=== PATIENT | female | born 2005 | race Caucasian/White ===

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

== ENCOUNTER 2024-03-09 13:11 | Inpatient (IN) | payer BC, OTHER ==
[2024-03-09] MEDS ORDERED: hydrALAZINE 20 MG/ML VIAL SLOW IVP PRN (16:05)
[2024-03-09] MEDS: Lactated Ringer's 1,000 ML IV SCH ×2 (16:15→17:32)
[2024-03-09 16:48] LABS: #Basophils 0.03 10x3/uL (0.0-0.2); #Eosinphils 0.07 10x3/uL (0.0-0.5); #Monocytes 0.35 10x3/uL (0.0-1.1); #Neutrophils 4.57 10x3/uL (1.5-8.4); %Basophils 0.4 % (0.0-2.0); %Lymphocytes 28.4 % (18.0-47.0); %Neutrophils 64.9 % (40.0-75.0); Hematocrit 36.4 % (34.9-44.5); Hemoglobin 12.6 g/dL (12.0-15.5); Mean Corpuscular HGB CONC 34.6 g/dL (32.0-36.0); Mean Corpuscular Hemoglobin 28.7 pg (27.0-33.0); Mean Corpuscular Volume 82.9 fL (81.6-98.3); Mean Platelet Volume 10.4 fL (7.4-10.4); Platelet Count 242 10x3/uL (150-450); RBC Distribution Width 17.6 % (11.5-14.5); Red Blood Cell (RBC) Count 4.39 10x6/uL (3.90-5.03)
[2024-03-09] MEDS ORDERED: Promethazine HCl 12.5 MG, Admixture Fee 1 EACH in Sodium Chloride 0.9% 50 ML IVPB SCH (17:00)
[2024-03-09 17:17] LABS: Phosphorus 3.8 mg/dL (2.3-4.7)
[2024-03-09 17:20] LABS: ALT (SGPT) 9 U/L (8-55); AST (SGOT) 13 U/L (5-30); Albumin 3.8 g/dL (3.5-5.0); Alkaline Phosphatase 50 U/L (40-100); Anion Gap 12 mmol/L (10-20); BUN (Urea Nitrogen) 5 mg/dL (8.4-21.0); Bilirubin, Total 0.5 mg/dL (0.2-1.2); Calc. Creatinine Clearance 105 mL/min (70-130); Calcium 9.5 mg/dL (7.8-10.44); Carbon Dioxide 27 mmol/L (22-29); Chloride 101 mmol/L (98-107); Estimated GFR 131; Globulin 2.7 g/dL (2.4-3.5); Glucose 78 mg/dL (70-105); Magnesium 1.8 mg/dL (1.7-2.2); Potassium 3.1 mmol/L (3.5-5.1); Protein, Total 6.5 g/dL (6.0-8.3); Sodium 137 mmol/L (136-145)
[2024-03-09] MEDS: Ondansetron PF 4 MG/2 ML Vial IVP SCH (17:49)
[2024-03-09] MEDS: diphenhydrAMINE 50 MG/ML VIAL IVP SCH (17:51)
[2024-03-09] MEDS: Pantoprazole 40 MG VIAL IVP SCH (18:42)
[2024-03-09] MEDS: MULTIVITAMINS IV SCH (20:25)
[2024-03-09] MEDS: SODIUM CHLORIDE IV SCH (20:25)
[2024-03-09] MEDS: ADMIXTURE FEE IV SCH (20:25)
[2024-03-09] MEDS: Thiamine HCl 200 MG, Admixture Fee 1 EACH in Sodium Chloride 0.9% 50 ML IVPB SCH (20:31)
[2024-03-09] MEDS: Acetaminophen 500 MG TAB PO PRN (20:42)
[2024-03-09] MEDS: Potassium Chloride 20 MEQ TAB PO SCH (20:42)
[2024-03-09] MEDS: Promethazine HCl 12.5 MG, Admixture Fee 1 EACH in Sodium Chloride 0.9% 50 ML IVPB SCH (21:42)
[2024-03-10 03:26] LABS: ALT (SGPT) 7 U/L (8-55); AST (SGOT) 11 U/L (5-30); Albumin 3.1 g/dL (3.5-5.0); Alkaline Phosphatase 40 U/L (40-100); Anion Gap 9 mmol/L (10-20); BUN (Urea Nitrogen) 5 mg/dL (8.4-21.0); Bilirubin, Total 0.2 mg/dL (0.2-1.2); Calc. Creatinine Clearance 101 mL/min (70-130); Calcium 8.4 mg/dL (7.8-10.44); Carbon Dioxide 26 mmol/L (22-29); Chloride 107 mmol/L (98-107); Estimated GFR 130; Globulin 2.2 g/dL (2.4-3.5); Glucose 76 mg/dL (70-105); Potassium 3.9 mmol/L (3.5-5.1); Protein, Total 5.3 g/dL (6.0-8.3); Sodium 138 mmol/L (136-145)
[2024-03-10 03:38] LABS: Hematocrit 31.4 % (34.9-44.5); Hemoglobin 10.5 g/dL (12.0-15.5); Mean Corpuscular HGB CONC 33.4 g/dL (32.0-36.0); Mean Corpuscular Hemoglobin 28.4 pg (27.0-33.0); Mean Corpuscular Volume 84.9 fL (81.6-98.3); Mean Platelet Volume 11.1 fL (7.4-10.4); Platelet Count 209 10x3/uL (150-450); White Blood Cell (WBC) Count 5.8 10x3/uL (3.5-10.5)
[2024-03-10] MEDS: METHadone HCl 10 MG TAB PO SCH ×2 (09:30→21:06)
[2024-03-10] MEDS: Thiamine HCl 200 MG, Admixture Fee 1 EACH in Sodium Chloride 0.9% 50 ML IVPB SCH (09:31)
[2024-03-10] MEDS: Pantoprazole 40 MG VIAL IVP SCH (09:31)
[2024-03-10] MEDS: Magnesium 2 GM/50 ML(in water) 2 GM in Premix 1 BAG IVPB SCH (09:58)
[2024-03-10] MEDS: Dextrose 5%-Lactated Ringers 1,000 ML IV SCH (09:58)
[2024-03-10 10:51] LABS: Bilirubin Neg (Negative); Blood, Urine Negative (Negative); Clarity Slightly Cloudy (Clear); Glucose, Urine (Dipstick) Normal (Negative); Ketone, Urine Negative (Negative); Leukocyte 25 (Negative); Nitrite Negative (Negative); Protein, Urine (Dipstick) Negative (Neg-Trace); Specific Gravity, Urine 1.015 (1.005-1.030); Urobilinogen Normal mg/dL (Less than 2)
[2024-03-10 10:59] LABS: Amphetamine Not Detected (NotDetected); Barbiturates Screen Not Detected (NotDetected); Benzodiazepine Screen Not Detected (NotDetected); Cocaine Metabolite Screen Not Detected (NotDetected); Methadone Detected (NotDetected); Methamphetamine Not Detected (NotDetected); Opiate Screen Not Detected (NotDetected); Oxycodone Screen Not Detected (NotDetected); Phencyclidine (PCP) Not Detected (NotDetected); THC/Cannabinoid Screen Detected (NotDetected); Tricyclic Screen Not Detected (NotDetected)
[2024-03-10 11:06] LABS: CAUTI Indications for Culture Pregnancy; RBC/HPF 0-3 HPF (0-3)
[2024-03-10 11:07] LABS: Bacteria/HPF 1+ HPF (None Seen)
[2024-03-10 11:08] LABS: Urine Culture Reflex Yes Yes
[2024-03-10] MEDS: busPIRone HCl 15 MG TAB PO SCH (20:46)
[2024-03-11 03:51] LABS: ALT (SGPT) Less than 7 U/L (8-55); AST (SGOT) 10 U/L (5-30); Albumin 2.7 g/dL (3.5-5.0); Alkaline Phosphatase 35 U/L (40-100); Anion Gap 8 mmol/L (10-20); BUN (Urea Nitrogen) Less than 4 mg/dL (8.4-21.0); Bilirubin, Total 0.2 mg/dL (0.2-1.2); Calc. Creatinine Clearance 110 mL/min (70-130); Calcium 8.2 mg/dL (7.8-10.44); Carbon Dioxide 23 mmol/L (22-29); Chloride 111 mmol/L (98-107); Estimated GFR 133; Globulin 1.9 g/dL (2.4-3.5); Glucose 88 mg/dL (70-105); Magnesium 1.8 mg/dL (1.7-2.2); Potassium 3.6 mmol/L (3.5-5.1); Protein, Total 4.6 g/dL (6.0-8.3); Sodium 138 mmol/L (136-145)
[2024-03-11 03:57] LABS: Phosphorus 3.6 mg/dL (2.3-4.7)
[2024-03-11] MEDS: Magnesium 2 GM/50 ML(in water) 2 GM in Premix 1 BAG IVPB SCH (08:24)
[2024-03-11] MEDS: Dextrose 5%-Lactated Ringers 1,000 ML IV SCH (09:54)
[2024-03-11] MEDS: methylPREDNISolone Sod Succ/PF 125 MG/2 ML VIAL IVP SCH (10:00)
[2024-03-11] MEDS: Metoclopramide HCl 10 MG (2 mL) VIAL IVP SCH (21:42)
[2024-03-12 05:25] LABS: ALT (SGPT) 9 U/L (8-55); AST (SGOT) 14 U/L (5-30); Albumin 3.2 g/dL (3.5-5.0); Alkaline Phosphatase 42 U/L (40-100); Anion Gap 10 mmol/L (10-20); BUN (Urea Nitrogen) Less than 4 mg/dL (8.4-21.0); Bilirubin, Total 0.2 mg/dL (0.2-1.2); Calc. Creatinine Clearance 125 mL/min (70-130); Calcium 9.1 mg/dL (7.8-10.44); Carbon Dioxide 22 mmol/L (22-29); Chloride 110 mmol/L (98-107); Estimated GFR 134; Globulin 2.6 g/dL (2.4-3.5); Glucose 113 mg/dL (70-105); Magnesium 1.8 mg/dL (1.7-2.2); Phosphorus 2.7 mg/dL (2.3-4.7); Potassium 4.1 mmol/L (3.5-5.1); Protein, Total 5.8 g/dL (6.0-8.3); Sodium 138 mmol/L (136-145)
[2024-03-12] MEDS: Bisacodyl 10 MG SUPP PR SCH (10:45)
[2024-03-12] MEDS: OLANZapine 10 MG VIAL IM SCH (10:48)
[2024-03-12 15:20] LABS: Influenza A by NAA Not Detected (NotDetected); Influenza B by NAA Not Detected (NotDetected); RSV by NAA Not Detected (NotDetected); SARS-CoV-2 NAA Rapid Test Not Detected (NotDetected)
[2024-03-13 03:53] LABS: Phosphorus 2.9 mg/dL (2.3-4.7)
[2024-03-13 04:03] LABS: ALT (SGPT) 8 U/L (8-55); AST (SGOT) 10 U/L (5-30); Albumin 2.7 g/dL (3.5-5.0); Alkaline Phosphatase 35 U/L (40-100); Anion Gap 11 mmol/L (10-20); BUN (Urea Nitrogen) Less than 4 mg/dL (8.4-21.0); Bilirubin, Total Less than 0.2 mg/dL (0.2-1.2); Calc. Creatinine Clearance 135 mL/min (70-130); Calcium 8.3 mg/dL (7.8-10.44); Carbon Dioxide 20 mmol/L (22-29); Chloride 113 mmol/L (98-107); Estimated GFR 136; Globulin 2.1 g/dL (2.4-3.5); Glucose 99 mg/dL (70-105); Magnesium 1.6 mg/dL (1.7-2.2); Potassium 3.4 mmol/L (3.5-5.1); Protein, Total 4.8 g/dL (6.0-8.3); Sodium 141 mmol/L (136-145)
[2024-03-13] MEDS: Magnesium 2 GM/50 ML(in water) 2 GM in Premix 1 BAG IVPB SCH (07:36)
[2024-03-13] MEDS: Potassium Chloride 20 MEQ TAB PO SCH (07:40)
[2024-03-13] MEDS: OLANZapine 5 MG TAB PO SCH (09:06)
[2024-03-13 23:04] LABS: Bilirubin Neg (Negative); Blood, Urine Negative (Negative); Clarity Clear (Clear); Glucose, Urine (Dipstick) 50 mg/dL (Negative); Ketone, Urine Negative (Negative); Leukocyte 25 (Negative); Nitrite Negative (Negative); Protein, Urine (Dipstick) 15 mg/dl (Neg-Trace); Specific Gravity, Urine 1.005 (1.005-1.030); Urobilinogen Normal mg/dL (Less than 2)
[2024-03-13 23:20] LABS: Bacteria/HPF None Seen HPF (None Seen); CAUTI Indications for Culture Pregnancy; RBC/HPF None Seen HPF (0-3); Squamous Epithelial 0-3 HPF (0-3); WBC/HPF 0-3 HPF (0-3)
[2024-03-13 23:22] LABS: Urine Culture Reflex Yes Yes
[2024-03-14 04:28] LABS: Phosphorus 2.9 mg/dL (2.3-4.7)
[2024-03-14 04:31] LABS: ALT (SGPT) 8 U/L (8-55); AST (SGOT) 13 U/L (5-30); Albumin 2.7 g/dL (3.5-5.0); Alkaline Phosphatase 35 U/L (40-100); Anion Gap 9 mmol/L (10-20); BUN (Urea Nitrogen) Less than 4 mg/dL (8.4-21.0); Bilirubin, Total Less than 0.2 mg/dL (0.2-1.2); Calc. Creatinine Clearance 150 mL/min (70-130); Calcium 8.6 mg/dL (7.8-10.44); Carbon Dioxide 24 mmol/L (22-29); Chloride 111 mmol/L (98-107); Estimated GFR 139; Globulin 2.2 g/dL (2.4-3.5); Glucose 99 mg/dL (70-105); Magnesium 1.9 mg/dL (1.7-2.2); Potassium 3.9 mmol/L (3.5-5.1); Protein, Total 4.9 g/dL (6.0-8.3); Sodium 140 mmol/L (136-145)
[2024-03-14] MEDS: Multivit, Adult Inj 10 ML VIAL IV SCH (08:00)
[2024-03-14] MEDS: Promethazine HCl 25 MG/ML VIAL IVPB SCH (08:00)
[2024-03-14] MEDS: Pantoprazole 40 MG VIAL IVP SCH (08:00)
[2024-03-14] MEDS: predniSONE 20 MG TAB PO SCH (09:08)
[2024-03-14] MEDS ORDERED: Milk Of Magnesia 30 ML UDCUP PO PRN (09:16)
[2024-03-14] MEDS ORDERED: Bisacodyl 10 MG SUPP PR PRN (09:16)
[2024-03-14] MEDS: methylPREDNISolone Sod Succ/PF 125 MG/2 ML VIAL IVP SCH (09:28)
[2024-03-14] MEDS: Pantoprazole DR 40 MG TAB PO SCH (10:25)
[2024-03-14] MEDS: D5 LR w/20 mEq KCL 1,000 ML IV SCH (10:51)
[2024-03-14] MEDS: Polyethylene Glycol 3350 17 GM Packet PO SCH (10:52)
[2024-03-14] MEDS: Diazepam 5 MG TAB PO SCH (10:52)
[2024-03-14] MEDS: Sucralfate 1 GM/10 ML UDCUP PO SCH ×2 (10:52→20:10)
[2024-03-14] MEDS: diphenhydrAMINE 25 MG CAP PO SCH (10:53)
[2024-03-14] MEDS: traZODone HCl 50 MG TAB PO PRN (22:57)
[2024-03-15 04:32] LABS: Phosphorus 3.1 mg/dL (2.3-4.7)
[2024-03-15 04:33] LABS: ALT (SGPT) 11 U/L (8-55); AST (SGOT) 14 U/L (5-30); Albumin 2.8 g/dL (3.5-5.0); Alkaline Phosphatase 41 U/L (40-100); Anion Gap 11 mmol/L (10-20); BUN (Urea Nitrogen) 6 mg/dL (8.4-21.0); Bilirubin, Total Less than 0.2 mg/dL (0.2-1.2); Calc. Creatinine Clearance 135 mL/min (70-130); Calcium 8.7 mg/dL (7.8-10.44); Carbon Dioxide 25 mmol/L (22-29); Chloride 109 mmol/L (98-107); Estimated GFR 136; Globulin 2.4 g/dL (2.4-3.5); Glucose 83 mg/dL (70-105); Potassium 3.6 mmol/L (3.5-5.1); Protein, Total 5.2 g/dL (6.0-8.3); Sodium 141 mmol/L (136-145)
[2024-03-15] MEDS: Thiamine 100 MG TAB PO SCH (09:01)
[2024-03-15] MEDS: Folic Acid 1 MG TAB PO SCH (09:04)
[2024-03-15] MEDS: Docusate 100 MG CAP PO SCH (09:05)
[2024-03-15] MEDS: Polyethylene Glycol 3350 17 GM Packet PO SCH (09:05)
[2024-03-15] MEDS ORDERED: methylPREDNISolone Sod Succ/PF 80 MG in Sodium Chloride 0.9% 250 ML 250 ML IVPB SCH (09:45)
[2024-03-15] MEDS: methylPREDNISolone Sod Succ 40 MG VIAL IVP SCH (12:05)
[2024-03-15] MEDS: diphenhydrAMINE 25 MG CAP PO SCH (12:05)
[2024-03-15] MEDS: Ondansetron ODT 8 MG TAB SL SCH (12:07)
[2024-03-15] MEDS ORDERED: Mineral Oil ENEMA PR PRN (12:29)
[2024-03-15] MEDS: D5 LR w/20 mEq KCL 1,000 ML IV SCH (14:14)
[2024-03-15] MEDS: Milk Of Magnesia 30 ML UDCUP PO SCH (14:14)
[2024-03-15] MEDS: Pantoprazole DR 40 MG TAB PO SCH (17:25)
[2024-03-15] MEDS: Senokot S 8.6-50 MG TAB PO SCH (19:42)
[2024-03-16 04:13] LABS: Anion Gap 10 mmol/L (10-20); BUN (Urea Nitrogen) 5 mg/dL (8.4-21.0); Calc. Creatinine Clearance 133 mL/min (70-130); Carbon Dioxide 25 mmol/L (22-29); Chloride 107 mmol/L (98-107); Estimated GFR 135; Glucose 98 mg/dL (70-105); Magnesium 1.9 mg/dL (1.7-2.2); Potassium 3.9 mmol/L (3.5-5.1); Sodium 138 mmol/L (136-145)
[2024-03-16] MEDS: Docusate 100 MG CAP PO SCH (09:20)
[2024-03-16] MEDS: methylPREDNISolone Sod Succ/PF 125 MG/2 ML VIAL IVP SCH (09:22)
[2024-03-16] MEDS: Promethazine 25 MG TAB PO SCH (13:40)
[2024-03-16] MEDS: GoLYTELY 4,000 ml Bottle PO SCH (13:42)
[2024-03-17 04:01] LABS: Anion Gap 14 mmol/L (10-20); BUN (Urea Nitrogen) 6 mg/dL (8.4-21.0); Calc. Creatinine Clearance 138 mL/min (70-130); Calcium 8.8 mg/dL (7.8-10.44); Carbon Dioxide 23 mmol/L (22-29); Chloride 106 mmol/L (98-107); Estimated GFR 136; Glucose 83 mg/dL (70-105); Magnesium 1.8 mg/dL (1.7-2.2); Potassium 3.3 mmol/L (3.5-5.1); Sodium 140 mmol/L (136-145)
[2024-03-17 07:31] LABS: Phosphorus 3.9 mg/dL (2.3-4.7)
[2024-03-17] MEDS: Potassium Chloride 20 MEQ TAB PO SCH (08:52)
[2024-03-17] MEDS: Magnesium Oxide 400 MG TAB PO SCH (08:55)
[2024-03-17] MEDS: Ondansetron PF 4 MG/2 ML Vial IVP PRN (15:08)
[2024-03-17] MEDS: Cyclobenzaprine 10 MG TAB PO SCH (20:46)
[2024-03-17] MEDS: Naloxegol 12.5 MG TAB PO SCH (20:47)
[2024-03-17] MEDS: Sucralfate 1 GM/10 ML UDCUP PO SCH (23:15)
[2024-03-17] MEDS: Simethicone Chewable 80 MG TAB PO PRN (23:15)
[2024-03-18 03:54] LABS: Anion Gap 13 mmol/L (10-20); BUN (Urea Nitrogen) 6 mg/dL (8.4-21.0); Calc. Creatinine Clearance 128 mL/min (70-130); Calcium 9.3 mg/dL (7.8-10.44); Carbon Dioxide 26 mmol/L (22-29); Chloride 105 mmol/L (98-107); Estimated GFR 134; Glucose 90 mg/dL (70-105); Magnesium 1.9 mg/dL (1.7-2.2); Potassium 3.9 mmol/L (3.5-5.1); Sodium 140 mmol/L (136-145)
[2024-03-18] MEDS: diphenhydrAMINE 25 MG CAP PO SCH (04:35)
[2024-03-18] MEDS: predniSONE 20 MG TAB PO SCH (09:46)
[2024-03-18] MEDS: Sucralfate 1 GM/10 ML UDCUP PO SCH (09:46)
[2024-03-18] MEDS: Naloxegol 12.5 MG TAB PO SCH (09:47)
[2024-03-18] MEDS: Ondansetron PF 4 MG/2 ML Vial IVP SCH (17:06)
[2024-03-18] MEDS: Famotidine 20 MG TAB PO SCH (21:52)
[2024-03-19 04:19] LABS: Anion Gap 12 mmol/L (10-20); BUN (Urea Nitrogen) 7 mg/dL (8.4-21.0); Calc. Creatinine Clearance 127 mL/min (70-130); Calcium 9.6 mg/dL (7.8-10.44); Carbon Dioxide 26 mmol/L (22-29); Chloride 104 mmol/L (98-107); Estimated GFR 132; Glucose 114 mg/dL (70-105); Potassium 4.5 mmol/L (3.5-5.1); Sodium 137 mmol/L (136-145)
[2024-03-19] MEDS: Dextrose 5%-Lactated Ringers 1,000 ML IV SCH (07:41)
[2024-03-19] MEDS: Famotidine 20 MG TAB PO SCH (09:54)
[2024-03-19] MEDS: Ondansetron ODT 4 MG TAB PO SCH (12:48)
[2024-03-19] MEDS ORDERED: Lidocaine 2% 6 ML (Jelly) SYR FS SCH (13:30)
[2024-03-20 06:10] LABS: Chloride 104 mmol/L (98-107); Potassium 3.9 mmol/L (3.5-5.1); Sodium 138 mmol/L (136-145)
[2024-03-20 06:11] LABS: Anion Gap 14 mmol/L (10-20); BUN (Urea Nitrogen) 8 mg/dL (8.4-21.0); Calc. Creatinine Clearance 149 mL/min (70-130); Calcium 9.2 mg/dL (7.6-10.4); Carbon Dioxide 24 mmol/L (22-29); Estimated GFR 137; Glucose 109 mg/dL (70-105); Magnesium 1.8 mg/dL (1.7-2.2); Phosphorus 3.7 mg/dL (2.3-4.7)
[2024-03-20] MEDS: diphenhydrAMINE 25 MG CAP ONE (11:06)
[2024-03-20] MEDS: diphenhydrAMINE 25 MG CAP PO SCH ×3 (11:06→11:15)
[2024-03-21 05:56] LABS: Anion Gap 15 mmol/L (10-20); BUN (Urea Nitrogen) 9 mg/dL (8.4-21.0); Calc. Creatinine Clearance 138 mL/min (70-130); Calcium 9.3 mg/dL (7.8-10.44); Carbon Dioxide 23 mmol/L (22-29); Chloride 102 mmol/L (98-107); Estimated GFR 135; Glucose 103 mg/dL (70-105); Magnesium 1.9 mg/dL (1.7-2.2); Phosphorus 4.5 mg/dL (2.3-4.7); Potassium 3.9 mmol/L (3.5-5.1); Sodium 136 mmol/L (136-145)
[2024-03-21] MEDS: Polyethylene Glycol 3350 17 GM Packet PO SCH (08:51)
[2024-03-21] MEDS: pyridOXINE 50 MG (B6) TAB PO SCH (08:51)
[2024-03-21] MEDS: Lactated Ringer's 1,000 ML IV SCH (17:07)
[2024-03-22 04:36] LABS: Anion Gap 15 mmol/L (10-20); BUN (Urea Nitrogen) 9 mg/dL (8.4-21.0); Calc. Creatinine Clearance 129 mL/min (70-130); Calcium 9.2 mg/dL (7.8-10.44); Carbon Dioxide 23 mmol/L (22-29); Chloride 102 mmol/L (98-107); Estimated GFR 133; Glucose 96 mg/dL (70-105); Magnesium 1.9 mg/dL (1.7-2.2); Phosphorus 3.9 mg/dL (2.3-4.7); Potassium 4.1 mmol/L (3.5-5.1); Sodium 136 mmol/L (136-145)
[2024-03-22 09:46] VITALS: BMI 17.9
[2024-03-23 03:30] LABS: Anion Gap 17 mmol/L (10-20); BUN (Urea Nitrogen) 9 mg/dL (8.4-21.0); Calc. Creatinine Clearance 125 mL/min (70-130); Calcium 9.1 mg/dL (7.8-10.44); Carbon Dioxide 21 mmol/L (22-29); Chloride 102 mmol/L (98-107); Estimated GFR 133; Glucose 129 mg/dL (70-105); Magnesium 1.9 mg/dL (1.7-2.2); Phosphorus 3.9 mg/dL (2.3-4.7); Potassium 3.7 mmol/L (3.5-5.1); Sodium 136 mmol/L (136-145)
[2024-03-23] MEDS ORDERED: Potassium Chloride 20 MEQ TAB PO SCH (08:45)
[2024-03-23] MEDS: Potassium Bicarbonate/Cit Ac 20 MEQ TAB PO SCH (09:08)
[2024-03-23 09:37] VITALS: BMI 17.9
[2024-03-24 04:57] LABS: Anion Gap 13 mmol/L (10-20); BUN (Urea Nitrogen) 9 mg/dL (8.4-21.0); Calc. Creatinine Clearance 132 mL/min (70-130); Calcium 9.2 mg/dL (7.8-10.44); Carbon Dioxide 25 mmol/L (22-29); Chloride 103 mmol/L (98-107); Estimated GFR 134; Glucose 96 mg/dL (70-105); Phosphorus 3.6 mg/dL (2.3-4.7); Sodium 137 mmol/L (136-145)
[2024-03-24 11:10] VITALS: BP 116/57; TEMP 97.9
== END 2024-03-24 14:25 | disposition home or self-care (01) | DRG 832 ==
LOC: INTOOBSV 16:14 → CSHPP 16:14 → OBSVTOIN 03-10 10:11
PROVIDERS: ADMIT Family Medicine; ATTEND Family Medicine
DX: O21.1 Hyperemesis gravidarum with metabolic disturbance (principal); F50.2 Bulimia nervosa; O99.322 Drug use complicating pregnancy, second trimester; F60.3 Borderline personality disorder; F11.90 Opioid use, unspecified, uncomplicated; F31.9 Bipolar disorder, unspecified; O99.342 Other mental disorders complicating pregnancy, second trimester; Z3A.17 17 weeks gestation of pregnancy; F45.22 Body dysmorphic disorder; Z79.899 Other long term (current) drug therapy; Z88.8 Allergy status to other drugs, medicaments and biological substances; O25.12 Malnutrition in pregnancy, second trimester; E83.42 Hypomagnesemia
CPT/HCPCS: 0241U; 36415; 74018; 80048; 80053; 80306; 81001; 83690; 83735; 84100; 85025; 85027; 87086; 93005; 93010; 96365; 96366; 96367; 96375; 96376; C9113; G0378; J1200; J2405; J2550; J2920; J2930; J3411; J3475; J3480; J7050; J7120; J7512; Q0162; Q0169

== ENCOUNTER 2024-06-30 16:42 | Inpatient (IN) | payer BC ==
[2024-06-30 17:12] VITALS: BMI 21.9
[2024-06-30] MEDS ORDERED: hydrALAZINE 20 MG/ML VIAL SLOW IVP PRN (19:01)
[2024-06-30] MEDS: Polyethylene Glycol 3350 17 GM Packet PO SCH (21:02)
[2024-06-30] MEDS: Ondansetron PF 4 MG/2 ML Vial IVP PRN (21:02)
[2024-06-30] MEDS: Docusate 100 MG CAP PO SCH (21:02)
[2024-06-30] MEDS: Folic Acid 1 MG TAB PO SCH (21:02)
[2024-06-30] MEDS: Lactated Ringer's 1,000 ML IV SCH (21:02)
[2024-06-30] MEDS: Multivit, Therapeutic 1 TAB PO SCH (21:02)
[2024-06-30] MEDS: Thiamine HCl 200 MG/2 ML VIAL SLOW IVP SCH (21:02)
[2024-06-30 21:39] LABS: #Basophils 0.03 10x3/uL (0.0-0.2); #Eosinophils 0.07 10x3/uL (0.0-0.5); #Monocytes 0.67 10x3/uL (0.0-1.1); #Neutrophils 4.96 10x3/uL (1.5-8.4); %Basophils 0.4 % (0.0-2.0); %Eosinophils 0.8 % (0.0-6.0); %Lymphocytes 31.5 % (18.0-47.0); %Neutrophils 59.1 % (40.0-75.0); Hematocrit 36.4 % (34.9-44.5); Hemoglobin 12.1 g/dL (12.0-15.5); Mean Corpuscular HGB CONC 33.2 g/dL (32.0-36.0); Mean Corpuscular Hemoglobin 28.8 pg (27.0-33.0); Mean Corpuscular Volume 86.7 fL (81.6-98.3); Mean Platelet Volume 10.6 fL (7.4-10.4); Platelet Count 226 10x3/uL (150-450); RBC Distribution Width 13.4 % (11.5-14.5); White Blood Cell (WBC) Count 8.4 10x3/uL (3.5-10.5)
[2024-06-30 21:49] LABS: ALT (SGPT) 18 U/L (8-55); AST (SGOT) 22 U/L (5-30); Albumin 3.4 g/dL (3.5-5.0); Alkaline Phosphatase 93 U/L (40-100); Anion Gap 14 mmol/L (10-20); BUN (Urea Nitrogen) 9 mg/dL (8.4-21.0); Bilirubin, Total 0.6 mg/dL (0.2-1.2); Calc. Creatinine Clearance 149 mL/min (70-130); Calcium 9.2 mg/dL (7.8-10.44); Carbon Dioxide 23 mmol/L (22-29); Chloride 103 mmol/L (98-107); Estimated GFR 132; Globulin 3.4 g/dL (2.4-3.5); Glucose 76 mg/dL (70-105); Phosphorus 3.1 mg/dL (2.3-4.7); Potassium 3.4 mmol/L (3.5-5.1); Protein, Total 6.8 g/dL (6.0-8.3); Sodium 137 mmol/L (136-145)
[2024-06-30 21:52] LABS: Amphetamine Not Detected (NotDetected); Barbiturates Screen Not Detected (NotDetected); Benzodiazepine Screen Not Detected (NotDetected); Cocaine Metabolite Screen Not Detected (NotDetected); Methadone Detected (NotDetected); Methamphetamine Not Detected (NotDetected); Opiate Screen Not Detected (NotDetected); Oxycodone Screen Not Detected (NotDetected); Phencyclidine (PCP) Not Detected (NotDetected); THC/Cannabinoid Screen Detected (NotDetected); Tricyclic Screen Not Detected (NotDetected)
[2024-06-30 21:54] LABS: Troponin I Less than 0.010 ng/mL (< 0.028)
[2024-06-30] MEDS: Promethazine 25 MG TAB PO PRN (22:38)
[2024-06-30 23:08] LABS: Syphilis Antibody Nonreactive (Nonreactive); Syphilis Antibody Index 0.04 S/CO (<1.00 Non-Reactive)
[2024-06-30 23:09] LABS: HIV (1/2) Antibody/Antigen Non-Reactive (NonReactive); HIV 1/2 INDEX 0.08 S/CO (<1.00)
[2024-07-01 04:17] LABS: #Basophils 0.03 10x3/uL (0.0-0.2); #Monocytes 0.79 10x3/uL (0.0-1.1); #Neutrophils 3.14 10x3/uL (1.5-8.4); %Basophils 0.4 % (0.0-2.0); %Eosinophils 1.5 % (0.0-6.0); %Lymphocytes 40.2 % (18.0-47.0); %Monocytes 11.5 % (0.0-10.0); Hematocrit 30.2 % (34.9-44.5); Hemoglobin 9.7 g/dL (12.0-15.5); Mean Corpuscular HGB CONC 32.1 g/dL (32.0-36.0); Mean Corpuscular Hemoglobin 28.4 pg (27.0-33.0); Mean Corpuscular Volume 88.6 fL (81.6-98.3); Mean Platelet Volume 10.4 fL (7.4-10.4); Platelet Count 180 10x3/uL (150-450); RBC Distribution Width 13.2 % (11.5-14.5); Red Blood Cell (RBC) Count 3.41 10x6/uL (3.90-5.03); White Blood Cell (WBC) Count 6.8 10x3/uL (3.5-10.5)
[2024-07-01 04:25] LABS: ALT (SGPT) 13 U/L (8-55); AST (SGOT) 16 U/L (5-30); Albumin 2.6 g/dL (3.5-5.0); Alkaline Phosphatase 71 U/L (40-100); Anion Gap 11 mmol/L (10-20); BUN (Urea Nitrogen) 6 mg/dL (8.4-21.0); Bilirubin, Total 0.5 mg/dL (0.2-1.2); Calc. Creatinine Clearance 149 mL/min (70-130); Calcium 8.6 mg/dL (7.8-10.44); Carbon Dioxide 24 mmol/L (22-29); Chloride 104 mmol/L (98-107); Estimated GFR 132; Globulin 2.8 g/dL (2.4-3.5); Glucose 82 mg/dL (70-105); Magnesium 1.7 mg/dL (1.7-2.2); Phosphorus 3.1 mg/dL (2.3-4.7); Potassium 3.3 mmol/L (3.5-5.1); Protein, Total 5.4 g/dL (6.0-8.3); Sodium 136 mmol/L (136-145)
[2024-07-01] MEDS: Folic Acid 1 MG TAB PO SCH (08:18)
[2024-07-01] MEDS: Multivit, Therapeutic 1 TAB PO SCH (08:18)
[2024-07-01] MEDS ORDERED: Docusate Sodium 100 MG/10 ML UDCUP PO SCH (09:00)
[2024-07-01] MEDS ORDERED: Sucralfate 1 GM/10 ML UDCUP PO PRN (09:06)
[2024-07-01] MEDS: Potassium Chloride 20 MEQ in Premix 1 BAG IVPB SCH (09:08)
[2024-07-01] MEDS: Senokot S 8.6-50 MG TAB PO SCH (09:59)
[2024-07-01 14:44] LABS: Bilirubin Neg (Negative); Blood, Urine Negative (Negative); Glucose, Urine (Dipstick) Normal (Negative); Ketone, Urine 150 mg/dL (Negative); Leukocyte 25 (Negative); Nitrite Negative (Negative); Protein, Urine (Dipstick) 30 mg/dl (Neg-Trace)
[2024-07-01 15:38] LABS: Clarity Turbid (Clear)
[2024-07-01 16:02] LABS: CAUTI Indications for Culture Pregnancy; RBC/HPF 0-3 HPF (0-3); Squamous Epithelial 0-3 HPF (0-3); Transitional Epithelial 0-3 HPF (None Seen); WBC/HPF 0-3 HPF (0-3)
[2024-07-01 16:03] LABS: Bacteria/HPF 2+ HPF (None Seen); Calcium Oxalate Crystals 1+ HPF (None Seen)
[2024-07-01 16:05] LABS: Urine Culture Reflex No No; Urine Culture Reflex Yes Yes
[2024-07-01] MEDS: METHadone HCl 10 MG TAB PO SCH ×2 (17:19→20:44)
[2024-07-01] MEDS: Pantoprazole 40 MG VIAL IVP SCH (20:44)
[2024-07-01] MEDS: Lactated Ringer's 1,000 ML IV SCH (22:00)
[2024-07-02 04:54] LABS: #Basophils 0.03 10x3/uL (0.0-0.2); #Eosinophils 0.11 10x3/uL (0.0-0.5); #Neutrophils 3.28 10x3/uL (1.5-8.4); %Basophils 0.5 % (0.0-2.0); %Eosinophils 1.8 % (0.0-6.0); %Lymphocytes 31.7 % (18.0-47.0); %Monocytes 11.6 % (0.0-10.0); %Neutrophils 54.1 % (40.0-75.0); Hematocrit 32.3 % (34.9-44.5); Hemoglobin 10.1 g/dL (12.0-15.5); Mean Corpuscular HGB CONC 31.3 g/dL (32.0-36.0); Mean Corpuscular Hemoglobin 28.1 pg (27.0-33.0); Mean Corpuscular Volume 89.7 fL (81.6-98.3); Mean Platelet Volume 10.6 fL (7.4-10.4); Platelet Count 182 10x3/uL (150-450); RBC Distribution Width 13.2 % (11.5-14.5); White Blood Cell (WBC) Count 6.1 10x3/uL (3.5-10.5)
[2024-07-02 04:55] LABS: Anion Gap 10 mmol/L (10-20); BUN (Urea Nitrogen) 4 mg/dL (8.4-21.0); Calc. Creatinine Clearance 162 mL/min (70-130); Calcium 8.2 mg/dL (7.8-10.44); Carbon Dioxide 23 mmol/L (22-29); Chloride 106 mmol/L (98-107); Estimated GFR 135; Glucose 76 mg/dL (70-105); Magnesium 1.7 mg/dL (1.7-2.2); Potassium 3.3 mmol/L (3.5-5.1); Sodium 136 mmol/L (136-145)
[2024-07-02] MEDS: OLANZapine 5 MG TAB PO SCH (08:36)
[2024-07-02] MEDS: Ferrous Gluconate 324 MG TAB PO SCH (08:37)
[2024-07-02] MEDS: METHadone HCl 10 MG TAB PO SCH (08:51)
[2024-07-02] MEDS ORDERED: METHadone HCl 10 MG TAB PO SCH (09:00)
[2024-07-02] MEDS: Mineral Oil ENEMA PR SCH (10:11)
[2024-07-02] MEDS: Sertraline 100 MG TAB PO SCH (10:11)
[2024-07-02 10:38] LABS: Chlam.trachomatis by PCR,Urine Not Detected (NotDetected); GC N.gonorrhoeae PCR,UrineVOID Not Detected (NotDetected)
[2024-07-02] MEDS: Magnesium Oxide 400 MG TAB PO SCH ×2 (11:42→21:50)
[2024-07-02] MEDS: Acetaminophen 500 MG TAB PO PRN (15:06)
[2024-07-02] MEDS: Benzocaine/Menthol 1 LOZ LOZ PO PRN (15:07)
[2024-07-02] MEDS ORDERED: Cyclobenzaprine 10 MG TAB PO PRN (21:08)
[2024-07-03 04:45] LABS: Anion Gap 12 mmol/L (10-20); BUN (Urea Nitrogen) Less than 4 mg/dL (8.4-21.0); Calc. Creatinine Clearance 154 mL/min (70-130); Calcium 8.2 mg/dL (7.8-10.44); Carbon Dioxide 22 mmol/L (22-29); Chloride 108 mmol/L (98-107); Estimated GFR 133; Glucose 77 mg/dL (70-105); Magnesium 1.7 mg/dL (1.7-2.2); Phosphorus 3.1 mg/dL (2.3-4.7); Potassium 3.7 mmol/L (3.5-5.1); Sodium 138 mmol/L (136-145)
[2024-07-03] MEDS: Milk Of Magnesia 30 ML UDCUP PO SCH (08:06)
[2024-07-03] MEDS: Sertraline 100 MG TAB PO SCH (09:08)
[2024-07-03] MEDS: Glycerin Adult Supp. (24 ct jar) PR SCH (12:19)
[2024-07-03] MEDS: GoLYTELY 4,000 ml Bottle PO SCH (13:42)
[2024-07-03] MEDS: Thiamine 100 MG TAB PO SCH (21:42)
[2024-07-04 04:25] LABS: Anion Gap 12 mmol/L (10-20); BUN (Urea Nitrogen) 4 mg/dL (8.4-21.0); Calc. Creatinine Clearance 165 mL/min (70-130); Calcium 8.4 mg/dL (7.8-10.44); Carbon Dioxide 24 mmol/L (22-29); Chloride 106 mmol/L (98-107); Estimated GFR 133; Glucose 70 mg/dL (70-105); Magnesium 1.9 mg/dL (1.7-2.2); Phosphorus 3.9 mg/dL (2.3-4.7); Potassium 3.5 mmol/L (3.5-5.1); Sodium 138 mmol/L (136-145)
[2024-07-04] MEDS: Diazepam 5 MG TAB PO PRN (19:38)
[2024-07-05 04:05] LABS: Anion Gap 15 mmol/L (10-20); BUN (Urea Nitrogen) Less than 4 mg/dL (8.4-21.0); Calc. Creatinine Clearance 171 mL/min (70-130); Calcium 8.6 mg/dL (7.8-10.44); Carbon Dioxide 18 mmol/L (22-29); Chloride 107 mmol/L (98-107); Estimated GFR 135; Glucose 86 mg/dL (70-105); Magnesium 1.9 mg/dL (1.7-2.2); Phosphorus 3.8 mg/dL (2.3-4.7); Potassium 3.9 mmol/L (3.5-5.1); Sodium 136 mmol/L (136-145)
[2024-07-05] MEDS: Dextrose 5%-Lactated Ringers 1,000 ML IV SCH (12:42)
[2024-07-05] MEDS: Lidocaine 2% 6 ML (Jelly) SYR TOP SCH (16:23)
[2024-07-05] MEDS: Oxymetazoline HCl 0.05% ( 15 ML ) NASAL SCH (16:23)
[2024-07-05] MEDS: traZODone HCl 50 MG TAB PO PRN (21:01)
[2024-07-06 05:15] LABS: ALT (SGPT) 14 U/L (8-55); AST (SGOT) 16 U/L (5-30); Albumin 2.5 g/dL (3.5-5.0); Alkaline Phosphatase 84 U/L (40-100); Anion Gap 12 mmol/L (10-20); BUN (Urea Nitrogen) 5 mg/dL (8.4-21.0); Bilirubin, Total 0.3 mg/dL (0.2-1.2); Calc. Creatinine Clearance 155 mL/min (70-130); Calcium 8.8 mg/dL (7.8-10.44); Carbon Dioxide 24 mmol/L (22-29); Chloride 107 mmol/L (98-107); Estimated GFR 131; Globulin 2.9 g/dL (2.4-3.5); Glucose 98 mg/dL (70-105); Magnesium 1.8 mg/dL (1.7-2.2); Phosphorus 3.9 mg/dL (2.3-4.7); Potassium 3.9 mmol/L (3.5-5.1); Protein, Total 5.4 g/dL (6.0-8.3); Sodium 139 mmol/L (136-145)
[2024-07-06] MEDS: Ferrous Gluconate 324 MG TAB PO SCH (08:23)
[2024-07-06] MEDS: METHadone HCl 10 MG TAB PO SCH (10:07)
[2024-07-06] MEDS: Pseudoephedrine HCl 30 MG TAB PO PRN (13:42)
[2024-07-06 15:24] LABS: Influenza A by NAA Not Detected (NotDetected); Influenza B by NAA Not Detected (NotDetected); SARS-CoV-2 NAA Rapid Test Not Detected (NotDetected)
[2024-07-06] MEDS: Fluticasone Propionate Nasal Spray 16 gm Bottle NASAL SCH (17:45)
[2024-07-06] MEDS: guaiFENesin ER 600 MG TAB PO SCH (17:45)
[2024-07-07 04:04] LABS: ALT (SGPT) 13 U/L (8-55); AST (SGOT) 14 U/L (5-30); Albumin 2.4 g/dL (3.5-5.0); Alkaline Phosphatase 83 U/L (40-100); Anion Gap 13 mmol/L (10-20); BUN (Urea Nitrogen) 4 mg/dL (8.4-21.0); Bilirubin, Total 0.3 mg/dL (0.2-1.2); Calc. Creatinine Clearance 161 mL/min (70-130); Calcium 8.7 mg/dL (7.8-10.44); Carbon Dioxide 21 mmol/L (22-29); Chloride 105 mmol/L (98-107); Estimated GFR 133; Globulin 2.9 g/dL (2.4-3.5); Glucose 75 mg/dL (70-105); Magnesium 1.8 mg/dL (1.7-2.2); Potassium 3.9 mmol/L (3.5-5.1); Protein, Total 5.3 g/dL (6.0-8.3); Sodium 135 mmol/L (136-145)
[2024-07-07] MEDS: Fluticasone Propionate Nasal Spray 16 gm Bottle NASAL SCH (08:23)
[2024-07-07] MEDS: guaiFENesin ER 600 MG TAB PO SCH (08:28)
[2024-07-09 03:58] LABS: ALT (SGPT) 12 U/L (8-55); AST (SGOT) 14 U/L (5-30); Albumin 2.4 g/dL (3.5-5.0); Alkaline Phosphatase 78 U/L (40-100); Anion Gap 11 mmol/L (10-20); BUN (Urea Nitrogen) 5 mg/dL (8.4-21.0); Bilirubin, Total 0.2 mg/dL (0.2-1.2); Calc. Creatinine Clearance 177 mL/min (70-130); Calcium 8.6 mg/dL (7.8-10.44); Carbon Dioxide 22 mmol/L (22-29); Chloride 105 mmol/L (98-107); Estimated GFR 135; Globulin 2.9 g/dL (2.4-3.5); Glucose 102 mg/dL (70-105); Potassium 3.8 mmol/L (3.5-5.1); Protein, Total 5.3 g/dL (6.0-8.3); Sodium 134 mmol/L (136-145)
[2024-07-09] MEDS ORDERED: Pantoprazole DR 40 MG TAB PO SCH (15:00)
[2024-07-09] MEDS: Enoxaparin 40 MG (0.4 mL) SYRINGE SC SCH ×2 (19:52→21:32)
[2024-07-09] MEDS: Metoclopramide HCl 10 MG (2 mL) VIAL IVP SCH (19:53)
[2024-07-09] MEDS: Mineral Oil ENEMA PR SCH (19:54)
[2024-07-09 23:52] LABS: Influenza A by NAA Not Detected (NotDetected); Influenza B by NAA Not Detected (NotDetected); SARS-CoV-2 NAA Rapid Test Not Detected (NotDetected)
[2024-07-10] MEDS ORDERED: Pantoprazole DR 40 MG TAB PO SCH (09:00)
[2024-07-10] MEDS ORDERED: Enoxaparin 40 MG (0.4 mL) SYRINGE SC SCH (09:00)
[2024-07-10 17:29] LABS: Bilirubin Neg (Negative); Blood, Urine Negative (Negative); Clarity Cloudy (Clear); Glucose, Urine (Dipstick) Normal (Negative); Ketone, Urine Negative (Negative); Leukocyte 500 (Negative); Nitrite Negative (Negative); Protein, Urine (Dipstick) Negative (Neg-Trace); Urobilinogen Normal mg/dL (Less than 2)
[2024-07-10 17:45] LABS: Bacteria/HPF 1+ HPF (None Seen); CAUTI Indications for Culture Pregnancy; RBC/HPF 0-3 HPF (0-3); Transitional Epithelial 0-3 HPF (None Seen); WBC/HPF 21-50 HPF (0-3)
[2024-07-10 17:46] LABS: Urine Culture Reflex Yes Yes
[2024-07-10] MEDS: Nitrofurantoin Macrocrystal 50 MG CAP PO SCH (21:13)
[2024-07-11] MEDS: Lactulose 20 GM (30 mL) UDCUP PO SCH (00:30)
[2024-07-11] MEDS: Boostrix 0.5 ML (Tdap) VIAL (>/=7 yrs of age) IM ONE (09:50)
[2024-07-12] MEDS: GoLYTELY 4,000 ml Bottle PO SCH (11:24)
[2024-07-12] MEDS: Diazepam 5 MG TAB PO PRN (20:38)
[2024-07-12] MEDS: METHadone HCl 10 MG TAB PO SCH (20:38)
[2024-07-13] MEDS: Pantoprazole 40 MG VIAL IVP SCH (08:59)
[2024-07-13] MEDS: Promethazine HCl 25 MG/ML VIAL IM PRN (10:03)
[2024-07-13 10:10] LABS: ALT (SGPT) 24 U/L (8-55); AST (SGOT) 25 U/L (5-30); Albumin 2.2 g/dL (3.5-5.0); Alkaline Phosphatase 86 U/L (40-100); Anion Gap 13 mmol/L (10-20); BUN (Urea Nitrogen) 5 mg/dL (8.4-21.0); Bilirubin, Total 0.2 mg/dL (0.2-1.2); Calc. Creatinine Clearance 171 mL/min (70-130); Calcium 9.1 mg/dL (7.8-10.44); Carbon Dioxide 23 mmol/L (22-29); Chloride 104 mmol/L (98-107); Estimated GFR 134; Globulin 3.3 g/dL (2.4-3.5); Glucose 101 mg/dL (70-105); Magnesium 1.6 mg/dL (1.7-2.2); Potassium 3.6 mmol/L (3.5-5.1); Protein, Total 5.5 g/dL (6.0-8.3); Sodium 136 mmol/L (136-145)
[2024-07-13] MEDS: Magnesium 2 GM/50 ML(in water) 2 GM in Premix 1 BAG IVPB SCH (11:44)
[2024-07-13] MEDS: GoLYTELY 4,000 ml Bottle PER TUBE SCH (14:00)
[2024-07-13] MEDS: Metoclopramide HCl 10 MG (2 mL) VIAL IVP SCH (16:10)
[2024-07-14 04:56] LABS: Anion Gap 13 mmol/L (10-20); BUN (Urea Nitrogen) 5 mg/dL (8.4-21.0); Calc. Creatinine Clearance 182 mL/min (70-130); Calcium 8.9 mg/dL (7.8-10.44); Carbon Dioxide 24 mmol/L (22-29); Chloride 104 mmol/L (98-107); Estimated GFR 134; Glucose 86 mg/dL (70-105); Magnesium 1.8 mg/dL (1.7-2.2); Potassium 3.6 mmol/L (3.5-5.1); Sodium 137 mmol/L (136-145)
[2024-07-15] MEDS: GoLYTELY 4,000 ml Bottle PO SCH (09:42)
[2024-07-16] MEDS: Milk Of Magnesia 30 ML UDCUP PO SCH (20:58)
[2024-07-16] MEDS: MAGIC MOUTHWASH 10 ML UDCUP SSP PRN (21:00)
[2024-07-16] MEDS: GoLYTELY 4,000 ml Bottle PO SCH (21:06)
[2024-07-17 04:08] LABS: ALT (SGPT) 17 U/L (8-55); AST (SGOT) 18 U/L (5-30); Albumin 2.2 g/dL (3.5-5.0); Alkaline Phosphatase 80 U/L (40-100); Anion Gap 14 mmol/L (10-20); BUN (Urea Nitrogen) 4 mg/dL (8.4-21.0); Bilirubin, Total 0.2 mg/dL (0.2-1.2); Calc. Creatinine Clearance 193 mL/min (70-130); Calcium 8.5 mg/dL (7.8-10.44); Carbon Dioxide 22 mmol/L (22-29); Chloride 105 mmol/L (98-107); Estimated GFR 135; Globulin 3.1 g/dL (2.4-3.5); Glucose 89 mg/dL (70-105); Magnesium 1.7 mg/dL (1.7-2.2); Potassium 3.6 mmol/L (3.5-5.1); Protein, Total 5.3 g/dL (6.0-8.3); Sodium 137 mmol/L (136-145)
[2024-07-17 12:17] VITALS: BMI 26.2
[2024-07-18] MEDS: GoLYTELY 4,000 ml Bottle PER TUBE PRN (13:15)
[2024-07-18] MEDS: Milk Of Magnesia 30 ML UDCUP PER TUBE PRN (13:16)
[2024-07-18] MEDS: Glycerin Adult Supp. (24 ct jar) PR SCH (21:50)
[2024-07-19] MEDS: Metamucil PACK PER TUBE SCH (09:55)
[2024-07-19] MEDS: Senokot S 8.6-50 MG TAB PO SCH (09:56)
[2024-07-20] MEDS: Cyclobenzaprine 10 MG TAB PO SCH ×3 (00:53→21:46)
[2024-07-20] MEDS: BENZOCAINE/MENTHOL/ZINC CHLOR 5.1 GM TUBE TOP PRN (08:06)
[2024-07-21] MEDS: Cyclobenzaprine 10 MG TAB PO PRN (20:36)
[2024-07-22] MEDS ORDERED: DIPHENHYDRAMINE SSP PRN ×2 (04:45→04:48)
[2024-07-22] MEDS ORDERED: MAGNESIUM HYDROXIDE SSP PRN ×2 (04:45→04:48)
[2024-07-22] MEDS ORDERED: [UNRECOGNIZED DRUG - OTHER] SSP PRN ×2 (04:45→04:48)
[2024-07-22] MEDS ORDERED: ALUMINUM SSP PRN ×2 (04:45→04:48)
[2024-07-22 05:32] LABS: Hematocrit 33.1 % (34.9-44.5); Hemoglobin 10.5 g/dL (12.0-15.5); Mean Corpuscular HGB CONC 31.7 g/dL (32.0-36.0); Mean Corpuscular Hemoglobin 27.8 pg (27.0-33.0); Mean Corpuscular Volume 87.6 fL (81.6-98.3); Mean Platelet Volume 10.4 fL (7.4-10.4); Platelet Count 282 10x3/uL (150-450); Red Blood Cell (RBC) Count 3.78 10x6/uL (3.90-5.03); White Blood Cell (WBC) Count 10.2 10x3/uL (3.5-10.5)
[2024-07-22 05:40] LABS: Phosphorus 4.7 mg/dL (2.3-4.7)
[2024-07-22 05:59] LABS: ALT (SGPT) 14 U/L (8-55); AST (SGOT) 15 U/L (5-30); Albumin 2.2 g/dL (3.5-5.0); Alkaline Phosphatase 93 U/L (40-100); Anion Gap 13 mmol/L (10-20); BUN (Urea Nitrogen) 5 mg/dL (8.4-21.0); Bilirubin, Total 0.2 mg/dL (0.2-1.2); Calc. Creatinine Clearance 164 mL/min (70-130); Calcium 8.9 mg/dL (7.8-10.44); Carbon Dioxide 24 mmol/L (22-29); Chloride 103 mmol/L (98-107); Estimated GFR 130; Globulin 3.5 g/dL (2.4-3.5); Glucose 85 mg/dL (70-105); Magnesium 1.6 mg/dL (1.7-2.2); Potassium 3.9 mmol/L (3.5-5.1); Protein, Total 5.7 g/dL (6.0-8.3); Sodium 136 mmol/L (136-145)
[2024-07-22] MEDS: Magnesium Oxide 400 MG TAB PO SCH (09:12)
[2024-07-22] MEDS: Pantoprazole DR 40 MG TAB PO SCH (09:13)
[2024-07-23 04:38] LABS: Magnesium 1.6 mg/dL (1.7-2.2)
[2024-07-23] MEDS: Ondansetron ODT 4 MG TAB PO PRN (08:02)
[2024-07-23] MEDS: Pantoprazole DR 40 MG TAB PO SCH (08:02)
[2024-07-23] MEDS: Magnesium Oxide 400 MG TAB PO SCH (09:57)
[2024-07-23 14:56] LABS: Group B Streptococcus by PCR Not Detected (NotDetected)
[2024-07-23] MEDS: Ondansetron PF 4 MG/2 ML Vial IVP PRN (18:46)
[2024-07-26] MEDS: Enoxaparin 40 MG (0.4 mL) SYRINGE SC SCH (19:15)
[2024-07-27 07:20] LABS: Hematocrit 31.7 % (34.9-44.5); Hemoglobin 9.8 g/dL (12.0-15.5); Mean Corpuscular HGB CONC 30.9 g/dL (32.0-36.0); Mean Corpuscular Hemoglobin 26.5 pg (27.0-33.0); Mean Corpuscular Volume 85.7 fL (81.6-98.3); Mean Platelet Volume 10.6 fL (7.4-10.4); Platelet Count 247 10x3/uL (150-450); RBC Distribution Width 14.2 % (11.5-14.5); White Blood Cell (WBC) Count 8.9 10x3/uL (3.5-10.5)
[2024-07-27 07:35] LABS: ALT (SGPT) 11 U/L (8-55); AST (SGOT) 16 U/L (5-30); Albumin 2.3 g/dL (3.5-5.0); Alkaline Phosphatase 104 U/L (40-100); Anion Gap 14 mmol/L (10-20); BUN (Urea Nitrogen) 5 mg/dL (8.4-21.0); Bilirubin, Total 0.2 mg/dL (0.2-1.2); Calc. Creatinine Clearance 180 mL/min (70-130); Carbon Dioxide 24 mmol/L (22-29); Chloride 104 mmol/L (98-107); Estimated GFR 133; Globulin 3.5 g/dL (2.4-3.5); Glucose 91 mg/dL (70-105); Magnesium 1.7 mg/dL (1.7-2.2); Potassium 3.9 mmol/L (3.5-5.1); Protein, Total 5.8 g/dL (6.0-8.3); Sodium 138 mmol/L (136-145)
[2024-07-27 07:55] LABS: Syphilis Antibody Nonreactive (Nonreactive); Syphilis Antibody Index 0.03 S/CO (<1.00 Non-Reactive)
[2024-07-27 07:56] LABS: HBsAg Index 0.16 S/CO (0-0.99); Hep B Surf Ag Non-Reactive S/CO (NonReactive)
[2024-07-27] MEDS ORDERED: Lidocaine 1% (PF) 30 ML VIAL SC PRN (08:09)
[2024-07-27] MEDS ORDERED: HYDROcodone/Acetaminophen 5/325 mg Tablet PO PRN (08:09)
[2024-07-27] MEDS ORDERED: Ibuprofen 800 MG TAB PO PRN (08:09)
[2024-07-27] MEDS ORDERED: Oxytocin 30 units/NS 500 ML 500 ML IV SCH (08:15)
[2024-07-27] MEDS: Famotidine 20 MG TAB PO SCH (10:25)
[2024-07-27] MEDS: Misoprostol 100 MCG TAB VAG SCH (21:56)
[2024-07-27] MEDS: Lactated Ringer's 1,000 ML IV SCH (22:23)
[2024-07-28] MEDS: diphenhydrAMINE 50 MG/ML VIAL IVP PRN ×2 (05:08→13:52)
[2024-07-28] MEDS ORDERED: Morphine 4 MG/ML VIAL SLOW IVP PRN (08:04)
[2024-07-28] MEDS: METHadone HCl 10 MG TAB PO SCH (08:44)
[2024-07-28] MEDS: fentaNYL/Ropivacaine Epidural 100 ML ONE (13:29)
[2024-07-28] MEDS ORDERED: ePHEDrine Sulfate 50 MG/10 ML VIAL SLOW IVP PRN (14:12)
[2024-07-28] MEDS ORDERED: Lactated Ringer's 500 ML IV PRN (14:12)
[2024-07-28] MEDS ORDERED: Promethazine HCl 25 MG/ML VIAL IM PRN (14:12)
[2024-07-28] MEDS ORDERED: Acetaminophen 325 MG TAB PO PRN (14:12)
[2024-07-28] MEDS ORDERED: Ondansetron PF 4 MG/2 ML Vial IVP PRN (14:12)
[2024-07-28] MEDS ORDERED: Moisturizing Cream (Eucerin) 113 GM JAR TOP PRN (14:12)
[2024-07-28] MEDS ORDERED: Communication Order-Pharmacy FS SCH (14:15)
[2024-07-28] MEDS: Oxytocin 30 units/NS 500 ML 500 ML IV SCH (16:51)
[2024-07-28] MEDS: fentaNYL 2 mcg/Ropivacaine 0.2% Epidural 100 ML CADD EPIDURAL SCH (20:51)
[2024-07-29] MEDS ORDERED: Ketorolac Tromethamine 30 MG (1 mL) VIAL ONE ×2 (09:11→13:20)
[2024-07-29] MEDS ORDERED: Tranexamic Acid 1,000 MG/10 ML VIAL ONE (13:20)
[2024-07-29] MEDS ORDERED: Ondansetron PF 4 MG/2 ML Vial ONE (13:20)
[2024-07-29] MEDS ORDERED: PHENYLEPHRINE-NS 100 MCG/ML 10 ML SYRINGE ONE (13:20)
[2024-07-29] MEDS ORDERED: Promethazine HCl 25 MG/ML VIAL ONE (13:20)
[2024-07-29] MEDS ORDERED: Methylergonovine 0.2 MG/ML VIAL ONE (13:20)
[2024-07-29] MEDS ORDERED: Dexamethasone 10 MG/ML VIAL ONE (13:20)
[2024-07-29] MEDS ORDERED: ePHEDrine Sulfate 50 MG/10 ML VIAL ONE (13:20)
[2024-07-29] MEDS ORDERED: Morphine PF 10 MG/10 ML VIAL ONE (13:20)
[2024-07-30] MEDS: Docusate 100 MG CAP ONE (21:19)
[2024-07-30] MEDS: HYDROmorphone 2 MG TAB ONE (21:20)
[2024-07-30] MEDS: METHadone HCl 10 MG TAB ONE (21:21)
[2024-07-30] MEDS: traZODone HCl 50 MG TAB ONE (22:24)
[2024-07-30] MEDS: Gabapentin 300 MG CAP PO ONE (22:25)
[2024-07-31] MEDS ORDERED: Simethicone Chewable 80 MG TAB PO PRN (06:57)
[2024-07-31] MEDS ORDERED: hydrALAZINE 20 MG/ML VIAL SLOW IVP PRN (06:57)
[2024-07-31] MEDS ORDERED: Lanolin Ointment 7 GM TUBE TOP PRN (06:57)
[2024-07-31] MEDS ORDERED: Polyethylene Glycol 3350 17 GM Packet PO PRN (07:00)
[2024-07-31] MEDS: METHadone HCl 10 MG TAB ONE ×2 (08:10→13:54)
[2024-07-31] MEDS: Ibuprofen 200 MG TAB PO SCH (08:10)
[2024-07-31] MEDS: HYDROmorphone 2 MG TAB ONE ×7 (08:10→14:58)
[2024-07-31] MEDS: Docusate 100 MG CAP ONE ×2 (08:10→13:53)
[2024-07-31] MEDS: Polyethylene Glycol 3350 17 GM Packet ONE (09:40)
[2024-07-31] MEDS ORDERED: Bisacodyl 5 MG TAB PO PRN (11:01)
[2024-07-31] MEDS: Acetaminophen 500 MG TAB PO SCH (11:32)
[2024-07-31] MEDS: Cyclobenzaprine 10 MG TAB PO SCH ×2 (12:18→21:24)
[2024-07-31] MEDS: Gabapentin 100 MG CAP PO SCH ×2 (12:19→14:17)
[2024-07-31] MEDS: Enoxaparin 40 MG (0.4 mL) SYRINGE SC SCH (13:30)
[2024-07-31] MEDS: Enoxaparin 40 MG (0.4 mL) SYRINGE ONE (13:33)
[2024-07-31] MEDS: Acetaminophen 500 MG TAB ONE ×5 (13:34→13:54)
[2024-07-31] MEDS: Ibuprofen 200 MG TAB ONE ×3 (13:34→13:53)
[2024-07-31] MEDS: Docusate 100 MG CAP PO SCH (14:02)
[2024-07-31] MEDS: HYDROmorphone 2 MG TAB PO PRN (14:35)
[2024-07-31] MEDS: traZODone HCl 50 MG TAB PO SCH (21:21)
[2024-07-31] MEDS: Magnesium Oxide 400 MG TAB PO SCH (21:22)
[2024-07-31] MEDS: Senokot S 8.6-50 MG TAB PO SCH (21:24)
[2024-07-31] MEDS: METHadone HCl 10 MG TAB PO SCH (21:27)
[2024-07-31] MEDS: Polyethylene Glycol 3350 17 GM Packet PO SCH (21:29)
[2024-08-01] MEDS: Ibuprofen 200 MG TAB PO SCH (02:12)
[2024-08-01] MEDS ORDERED: HYDROmorphone 2 MG TAB PO PRN (04:26)
[2024-08-01] MEDS: HYDROmorphone 2 MG TAB PO PRN (09:44)
[2024-08-01] MEDS: METHadone HCl 10 MG TAB PO SCH (09:47)
[2024-08-01] MEDS: OLANZapine 5 MG TAB PO SCH (10:27)
[2024-08-01] MEDS: methylPREDNISolone 4 mg Tablet PO SCH (10:27)
[2024-08-01] MEDS: Pantoprazole DR 40 MG TAB PO SCH (10:27)
[2024-08-01] MEDS: Ferrous Gluconate 324 MG TAB PO SCH (10:27)
[2024-08-01] MEDS: Diazepam 5 MG TAB PO SCH (12:45)
[2024-08-01] MEDS: METHadone HCl 10 MG TAB ONE ×4 (16:30→21:31)
[2024-08-01] MEDS: Docusate 100 MG CAP ONE ×2 (16:31→16:39)
[2024-08-01] MEDS: HYDROmorphone 2 MG TAB ONE ×4 (16:31→21:31)
[2024-08-01] MEDS: Ketorolac Tromethamine 30 MG (1 mL) VIAL ONE (16:37)
[2024-08-01] MEDS: Cyclobenzaprine 10 MG TAB PO SCH (16:38)
[2024-08-01] MEDS: Acetaminophen 500 MG TAB ONE (16:38)
[2024-08-01] MEDS: Cyclobenzaprine 10 MG TAB ONE (16:38)
[2024-08-01] MEDS: traZODone HCl 50 MG TAB ONE (16:39)
[2024-08-01] MEDS: Ibuprofen 200 MG TAB ONE (16:39)
[2024-08-02] MEDS: Dexmedetomidine 200 MCG/2 ML VIAL ONE (07:51)
[2024-08-02] MEDS: Bupivacaine PF 0.5% 30 ML VIAL ONE (07:52)
[2024-08-02] MEDS: Docusate 100 MG CAP ONE ×2 (08:34→20:49)
[2024-08-02] MEDS: methylPREDNISolone 4 mg Tablet PO SCH (08:39)
[2024-08-02] MEDS: Diazepam 5 MG TAB PO SCH (09:43)
[2024-08-02] MEDS: METHadone HCl 10 MG TAB ONE (20:49)
[2024-08-02] MEDS: Ondansetron PF 4 MG/2 ML Vial ONE (22:53)
[2024-08-03] MEDS: Boostrix 0.5 ML (Tdap) VIAL (>/=7 yrs of age) IM ONE (07:26)
[2024-08-03] MEDS: methylPREDNISolone 4 mg Tablet PO SCH (08:42)
[2024-08-03] MEDS: Docusate 100 MG CAP ONE ×2 (08:43→23:23)
[2024-08-03] MEDS: Ondansetron PF 4 MG/2 ML Vial ONE (14:57)
[2024-08-03 15:58] LABS: Analyzer IN Cardio CS NICU; RapidComm Collect By OR NURSE
[2024-08-03 16:06] LABS: Analyzer IN Cardio CS NICU; Critical Notified By: clumpkins rt; RapidComm Collect By LD RN
[2024-08-03] MEDS: Acetaminophen 500 MG TAB PO SCH (16:53)
[2024-08-03] MEDS: Bisacodyl 5 MG TAB PO SCH (20:25)
[2024-08-03] MEDS: METHadone HCl 10 MG TAB ONE (23:23)
[2024-08-04 03:44] LABS: Hematocrit 32.5 % (34.9-44.5); Hemoglobin 10.1 g/dL (12.0-15.5); Mean Corpuscular HGB CONC 31.1 g/dL (32.0-36.0); Mean Corpuscular Hemoglobin 26.9 pg (27.0-33.0); Mean Corpuscular Volume 86.7 fL (81.6-98.3); Mean Platelet Volume 9.4 fL (7.4-10.4); Platelet Count 371 10x3/uL (150-450); RBC Distribution Width 14.7 % (11.5-14.5); Red Blood Cell (RBC) Count 3.75 10x6/uL (3.90-5.03); White Blood Cell (WBC) Count 14.2 10x3/uL (3.5-10.5)
[2024-08-04 03:52] LABS: Phosphorus 4.4 mg/dL (2.3-4.7)
[2024-08-04 03:54] LABS: ALT (SGPT) 14 U/L (8-55); AST (SGOT) 12 U/L (5-34); Albumin 2.5 g/dL (3.5-5.0); Alkaline Phosphatase 89 U/L (40-100); Anion Gap 15 mmol/L (10-20); BUN (Urea Nitrogen) 7 mg/dL (7.0-18.7); Bilirubin, Total Less than 0.2 mg/dL (0.2-1.2); Calc. Creatinine Clearance 173 mL/min (70-130); Calcium 9.1 mg/dL (7.8-10.44); Carbon Dioxide 25 mmol/L (22-29); Chloride 105 mmol/L (98-107); Estimated GFR 131; Globulin 3.4 g/dL (2.4-3.5); Glucose 87 mg/dL (70-105); Magnesium 1.6 mg/dL (1.7-2.2); Protein, Total 5.9 g/dL (6.0-8.3); Sodium 141 mmol/L (136-145)
[2024-08-04] MEDS: methylPREDNISolone 4 mg Tablet PO SCH (08:59)
[2024-08-04] MEDS: Docusate 100 MG CAP ONE (09:12)
[2024-08-04] MEDS: METHadone HCl 10 MG TAB ONE (09:12)
[2024-08-04] MEDS ORDERED: Cyclobenzaprine 10 MG TAB PO PRN (09:49)
[2024-08-04] MEDS: Ibuprofen 200 MG TAB PO PRN (11:39)
[2024-08-04] MEDS: Magnesium 2 GM/50 ML(in water) 2 GM in Premix 1 BAG IVPB SCH (13:30)
[2024-08-04] MEDS: Magnesium Oxide 400 MG TAB PO SCH ×2 (14:26→20:49)
[2024-08-04] MEDS: Cyclobenzaprine 10 MG TAB PO SCH (20:48)
[2024-08-05] MEDS: methylPREDNISolone 4 mg Tablet PO SCH (08:34)
[2024-08-06] MEDS: methylPREDNISolone 4 mg Tablet PO SCH (08:44)
[2024-08-06] MEDS: Cyclobenzaprine 10 MG TAB PO PRN (09:20)
[2024-08-06] MEDS: Ondansetron PF 4 MG/2 ML Vial IVP PRN (12:41)
[2024-08-06] MEDS: Ondansetron ODT 4 MG TAB PO PRN (12:52)
[2024-08-06 20:41] VITALS: BP 116/55; TEMP 97.8
== END 2024-08-06 21:30 | DRG 787 ==
LOC: CSHLD/OP 16:42 → CSHLD 19:47 → CSHANTE 21:35 → CSHLD 07-27 20:15 → CSHANTE 07-29 05:00
PROVIDERS: ADMIT Family Medicine; ATTEND Family Medicine
PROC: 10D00Z1 Extraction of Products of Conception, Low, Open Approach (ICD-10-PCS; principal; 2024-07-29)
DX: O99.344 Other mental disorders complicating childbirth (principal); F31.30 Bipolar disorder, current episode depressed, mild or moderate severity, unspecified; F50.029 Anorexia nervosa, binge eating/purging type, unspecified; O98.52 Other viral diseases complicating childbirth; F60.3 Borderline personality disorder; F45.22 Body dysmorphic disorder; O76 Abnormality in fetal heart rate and rhythm complicating labor and delivery; Z37.0 Single live birth; E87.6 Hypokalemia; K21.9 Gastro-esophageal reflux disease without esophagitis; O99.62 Diseases of the digestive system complicating childbirth; O99.284 Endocrine, nutritional and metabolic diseases complicating childbirth; K59.03 Drug induced constipation; T40.3X5A Adverse effect of methadone, initial encounter; O25.2 Malnutrition in childbirth; E86.0 Dehydration; D50.9 Iron deficiency anemia, unspecified; O99.02 Anemia complicating childbirth; E83.42 Hypomagnesemia; Z3A.33 33 weeks gestation of pregnancy; Z79.899 Other long term (current) drug therapy; Z88.8 Allergy status to other drugs, medicaments and biological substances; O36.5930 Maternal care for other known or suspected poor fetal growth, third trimester, not applicable or unspecified; B00.9 Herpesviral infection, unspecified
CPT/HCPCS: 36415; 36416; 51702; 59200; 70220; 71045; 72148; 72158; 72197; 74018; 76705; 76815; 76819; 80048; 80053; 80306; 81001; 82607; 82805; 83735; 83880; 84100; 84443; 84484; 85025; 85027; 86141; 86780; 86850; 86900; 86901; 87086; 87340; 87389; 87491; 87591; 87653; 87661; 88307; 90715; 93005; 93010; 93306; 99285; J0665; J1100; J1200; J1650; J1885; J2210; J2274; J2405; J2470; J2550; J2590; J3411; J3475; J3480; J7120; J7509; Q0162; Q0163; Q0169